=== PATIENT | female | born 1990 | race Caucasian/White ===

== ENCOUNTER 2018-01-24 16:35 | Emergency (ER) | payer OTHER ==
[2018-01-24 16:42] VITALS: RESP 18; TEMP 99
[2018-01-24] MEDS ORDERED: NS 500 ML IV ONE (17:02)
--- NOTE | 2018-01-24 17:06 | EDPHY ---
H & P Time Seen by Provider: 01/24/18 16:54 HPI/ROS: CHIEF COMPLAINT: Right lower quadrant abdominal pain HISTORY OF PRESENT ILLNESS: Patient is a 20-year-old female with a history of PCOS with recurrent ovarian cyst cyst who presents emergency to the emergency department with right lower quadrant pain. This is typical of her previous cyst pain. It started last week and was gradual. She described it as more of a nuisance. Last night increased in degree. It worsened throughout the day today. She has had nausea with no vomiting. She had mild dysuria and frequency. No hematuria. No fevers or chills. No back pain. Patient has last menstrual period was 11/01/2017. She states that she has irregular menses at baseline. REVIEW OF SYSTEMS: My complete review of systems is negative except as mentioned in the HPI. Past Medical/Surgical History: Includes PCOS Past surgical history: Ovarian cyst removal Social history: The patient is not Smoking Status: Never smoked Physical Exam: 37.2, 124/80, 94, 18, 98% on room air GENERAL: Well-appearing, in no acute distress, alert. HEENT: Eyes normal to inspection, normal pharynx, no signs of dehydration. NECK: [No thyromegaly, no lymphadenopathy, supple. RESPIRATORY: Clear to auscultation bilaterally, no rales, rhonchi or wheezing. CVS: Regular rate and rhythm, no rubs, murmurs, or gallops. ABDOMEN: Soft, right lower quadrant tenderness to palpation with no rebound or guarding. Patient also has mild left lower quadrant tenderness palpation with no rebound or guarding. Nondistended, no organomegaly. BACK: Normal to inspection, no CVA tenderness. SKIN: Normal color, no rash, warm, dry. No pallor. EXTREMITIES: No pedal edema, no joint swelling. NEURO/PSYCH: Alert and oriented x3, normal mood and affect, normal motor sensory exam. No obvious cranial nerve deficit. Constitutional: Initial Vital Signs Temperature (C) 37.2 C 01/24/18 16:39 Heart Rate 94 01/24/18 16:39 Respiratory Rate 18 01/24/18 16:39 Blood Pressure 124/80 H 01/24/18 16:39 O2 Sat (%) 98 01/24/18 16:39 O2 Delivery Mode Room Air Allergies/Adverse Reactions: No Known Allergies Allergy (Unverified 01/24/18 16:38) Home Medications: Medication Instructions Recorded Sertraline HCl [Zoloft 25mg (*)] 25 mg PO DAILY 01/24/18 Medical Decision Making - Diagnostics Imaging Results: Imaging Impressions Pelvic/Renal Ultrasound 01/24/18 17:02 Impression: Basically normal pelvic ultrasound for patient's age. Findings and recommendations discussed with CARMEN Dorman FELECIA at 1750 hour, . Final report concurs with initial preliminary interpretation. ED Course/Re-evaluation: In the emergency department I discussed possible etiologies with the patient. I answered all her questions. IV was placed. Laboratory studies and ultrasound were ordered. Patient does not want pain medication at this time. She was offered Zofran 4 mg IV for nausea. Patient's white count was minimally elevated. Chemistry panel was normal. Urine was normal. was negative. Ultrasound: Please refer the dictated report by the radiologist. No acute disease. Normal ovary and normal appendix. I discussed the results with the patient. I answered all her questions. On recheck the patient was doing well. She is in no distress. No significant tenderness to palpation. I discussed all results. She felt comfortable with discharge. She will follow up with a daycare worker. She was given warnings prior to leaving. She will return with worsening symptoms. Differential Diagnosis: My differential includes but is not limited to ovarian cyst, ovarian torsion, hemorrhagic ovarian cyst, appendicitis, urinary tract infection, pyelonephritis , small-bowel obstruction, perforation, STD, tubo-ovarian abscess - Data Points Laboratory Results: Laboratory Results 01/24/18 17:19 01/24/18 17:19 01/24/18 01/24/18 01/24/18 18:10 17:19 17:19 WBC RBC Hgb Hct MCV MCH MCHC RDW Plt Count MPV Neut % (Auto) Lymph % (Auto) [place] % (Auto) Eos % (Auto) Baso % (Auto) Nucleat RBC Rel Count Absolute Neuts (auto) Absolute Lymphs (auto) Absolute Monos (auto) Absolute Eos (auto) Absolute Basos (auto) Absolute Nucleated RBC Immature Gran % Immature Gran # Sodium 140 mEq/L mEq/L (135-145) Potassium 3.8 mEq/L mEq/L (3.5-5.2) Chloride 104 mEq/L mEq/L (97-110) Carbon Dioxide 23 mEq/l mEq/l (22-31) Anion Gap 13 mEq/L mEq/L (8-16) BUN 16 mg/dL mg/dL (7-23) Creatinine 0.8 mg/dL mg/dL (0.6-1.0) Estimated GFR > 60 Glucose 97 mg/dL mg/dL (70-100) Calcium 9.6 mg/dL mg/dL (8.5-10.4) Beta HCG, Qual NEGATIVE Urine Color YELLOW Urine Appearance CLEAR Urine pH 5.0 (5.0-7.5) Ur Specific [place] 1.028 (1.002-1.030) Urine Protein NEGATIVE (NEGATIVE) Urine Ketones NEGATIVE (NEGATIVE) Urine Blood NEGATIVE (NEGATIVE) Urine Nitrate NEGATIVE (NEGATIVE) Urine Bilirubin NEGATIVE (NEGATIVE) Urine Urobilinogen NEGATIVE EU EU (0.2-1.0) Ur Leukocyte Esterase NEGATIVE (NEGATIVE) Urine RBC 1-3 /hpf /hpf (0-3) Urine WBC 1-3 /hpf /hpf (0-3) Ur Epithelial Cells TRACE /lpf /lpf (NONE-1+) Urine Mucus TRACE /lpf /lpf (NONE-1+) Urine Glucose NEGATIVE (NEGATIVE) 01/24/18 01/24/18 01/24/18 17:19 16:58 16:58 WBC 11.97 10^3/uL H 10^3/uL (3.80-9.50) RBC 4.13 10^6/uL L 10^6/uL (4.18-5.33) Hgb 13.1 g/dL g/dL (12.6-16.3) Hct 38.4 % % (38.0-47.0) MCV 93.0 fL fL (81.5-99.8) MCH 31.7 pg pg (27.9-34.1) MCHC 34.1 g/dL g/dL (32.4-36.7) RDW 12.2 % % (11.5-15.2) Plt Count 342 10^3/uL 10^3/uL (150-400) MPV 9.3 fL fL (8.7-11.7) Neut % (Auto) 72.7 % % (39.3-74.2) Lymph % (Auto) 17.1 % % (15.0-45.0) [place] % (Auto) 8.9 % % (4.5-13.0) Eos % (Auto) 0.3 % L % (0.6-7.6) Baso % (Auto) 0.7 % % (0.3-1.7) Nucleat RBC Rel Count 0.0 % % (0.0-0.2) Absolute Neuts (auto) 8.71 10^3/uL H 10^3/uL (1.70-6.50) Absolute Lymphs (auto) 2.05 10^3/uL 10^3/uL (1.00-3.00) Absolute Monos (auto) 1.07 10^3/uL H 10^3/uL (0.30-0.80) Absolute Eos (auto) 0.03 10^3/uL 10^3/uL (0.03-0.40) Absolute Basos (auto) 0.08 10^3/uL 10^3/uL (0.02-0.10) Absolute Nucleated RBC 0.00 10^3/uL 10^3/uL (0-0.01) Immature Gran % 0.3 % % (0.0-1.1) Immature Gran # 0.03 10^3/uL 10^3/uL (0.00-0.10) Sodium REJ Potassium Not Reported Chloride Not Reported Carbon Dioxide Not Reported Anion Gap Not Reported BUN Not Reported Creatinine Not Reported Estimated GFR Not Reported Glucose Not Reported Calcium Not Reported Beta HCG, Qual REJ Urine Color Urine Appearance Urine pH Ur Specific [place] Urine Protein Urine Ketones Urine Blood Urine Nitrate Urine Bilirubin Urine Urobilinogen Ur Leukocyte Esterase Urine RBC Urine WBC Ur Epithelial Cells Urine Mucus Urine Glucose 01/24/18 16:58 WBC REJ RBC Not Reported Hgb Not Reported Hct Not Reported MCV Not Reported MCH Not Reported MCHC Not Reported RDW Not Reported Plt Count Not Reported MPV Not Reported Neut % (Auto) Not Reported Lymph % (Auto) Not Reported [place] % (Auto) Not Reported Eos % (Auto) Not Reported Baso % (Auto) Not Reported Nucleat RBC Rel Count Not Reported Absolute Neuts (auto) Not Reported Absolute Lymphs (auto) Not Reported Absolute Monos (auto) Not Reported Absolute Eos (auto) Not Reported Absolute Basos (auto) Not Reported Absolute Nucleated RBC Not Reported Immature Gran % Not Reported Immature Gran # Not Reported Sodium Potassium Chloride Carbon Dioxide Anion Gap BUN Creatinine Estimated GFR Glucose Calcium Beta HCG, Qual Urine Color Urine Appearance Urine pH Ur Specific [place] Urine Protein Urine Ketones Urine Blood Urine Nitrate Urine Bilirubin Urine Urobilinogen Ur Leukocyte Esterase Urine RBC Urine WBC Ur Epithelial Cells Urine Mucus Urine Glucose Medications Given: Discontinued Medications Sodium Chloride (Ns) 500 mls @ 0 mls/hr IV ONCE ONE; Wide Open PRN Reason: Protocol Stop: 01/24/18 17:03 Last Admin: 01/24/18 17:18 Dose: 500 mls Ondansetron HCl (Zofran) 4 mg IVP EDNOW ONE Stop: 01/24/18 17:10 Last Admin: 01/24/18 17:16 Dose: Not Given Departure - Departure Disposition: Home, Routine, Self-Care Clinical Impression: Abdominal pain Qualifiers: Abdominal location: right lower quadrant Qualified Code(s): R10.31 - Right lower quadrant pain Condition: Good Instructions: Abdominal Pain (ED) Additional Instructions: Return with increasing pain, fever, vomiting or any other concerns. You need close follow-up with a daycare worker. Referrals: Lourdes Chan NP [Primary Care Provider] - 2-3 days without fail
[2018-01-24] MEDS ORDERED: ONDANSETRON 4 MG/2 ML VIAL IVP ONE (17:09)
[2018-01-24 17:27] LABS: PLATELET COUNT 342 10^3/uL (150-400)
[2018-01-24 18:37] VITALS: O2SAT 96
[2018-01-24 19:20] VITALS: BP 120/61; PULSE 73
== END 2018-01-24 19:19 | disposition home or self-care (01) ==
DX: R10.31 Right lower quadrant pain (principal); E86.9 Volume depletion, unspecified
CPT/HCPCS: J2405